=== PATIENT | male | born 1945 | race Asian ===

== ENCOUNTER 2023-09-22 08:37 | Outpatient (RCR) | payer OTHER, SELFPAY | END 2023-09-22 23:59 | disposition home or self-care (01) | LOC: RPT 08:37 | PROVIDERS: ATTENDING PHYSICIAN Orthopaedic Surgery; FAMILY PHYSICIAN Internal Medicine | DX: M76.32 Iliotibial band syndrome, left leg (principal); M16.12 Unilateral primary osteoarthritis, left hip; Z73.6 Limitation of activities due to disability; M25.552 Pain in left hip | CPT/HCPCS: 97110; 97161 ==

== ENCOUNTER 2023-10-13 09:07 | Outpatient (RCR) | payer OTHER, SELFPAY | END 2023-10-13 23:59 | disposition home or self-care (01) | LOC: RPT 09:07 | PROVIDERS: ATTENDING PHYSICIAN Orthopaedic Surgery; FAMILY PHYSICIAN Internal Medicine | DX: M76.32 Iliotibial band syndrome, left leg (principal); M16.12 Unilateral primary osteoarthritis, left hip; Z73.6 Limitation of activities due to disability; R26.2 Difficulty in walking, not elsewhere classified; M62.81 Muscle weakness (generalized) | CPT/HCPCS: 97110; 97140 ==

== ENCOUNTER 2024-03-24 07:59 | Emergency (ER) | payer OTHER, SELFPAY ==
[2024-03-24 07:59] VITALS: BMI 21.6
[2024-03-24 08:01] VITALS: BP 123/71
--- NOTE | 2024-03-24 09:39 | ED.GENMED ---
History of Present Illness
General
Chief Complaint: Fever
Source: patient
Exam Limitations: none
Time Seen by Provider: 03/24/24 09:39
Nursing documentation reviewed up to this point in time: agreed with
History of Present Illness
History of Present Illness:
79-year-old male presents to the ER for evaluation. Patient reports he got back from [place] last night but reports for the past 2 weeks he has had intermittent episodes of diarrhea. He complains of feeling very dizzy and feels feverish and
complains of weakness. He denies any abdominal pain to me. He denies any cough denies any runny nose.
He denies any chest pain shortness of breath.
Past History
Past History
ED Past Medical History: Hypercholesterolemia
ED Past Surgical History: None
Social History
Tobacco: Non-smoker
Living: with family
Review of Systems
Review of Systems
Allergies reviewed?: Yes
All Other Systems: ROS reviewed and negative except as documented in HPI and ROS
Constitutional: Reports fever, fatigue and chills
Respiratory: Reports no symptoms; Denies cough or trouble breathing
Cardiac: Reports no symptoms
ABD/GI: Reports diarrhea (Intermittent diarrhea for 2 weeks)
: Reports no symptoms
Skin: Reports no symptoms
Neurological: Reports no symptoms
Psychiatric: Reports no symptoms
Phy Exam
General Physical Exam
General Presentation: no apparent distress
General age: appears stated age
General Skin: warm and dry
General Habitus: normal
General Mental: alert
General Hydration: appears well hydrated
Cardiovascular Exam
Cardiovascular Exam: regular rate/rhythm
Pulmonary Exam
Pulmonary Exam: lungs clear and no respiratory distress
Gastrointestinal Exam
Gastrointestinal Exam: normal bowel sounds, non tender and soft
Neurological Exam
Neurological Exam: alert and oriented x3
Musculoskeletal Exam
Musculoskeletal Exam: full ROM
Skin Exam
Skin Exam: normal color and warm/dry
Psychiatric Exam
Psychiatric Exam: normal mood/affect
Sepsis
Sepsis Screening
Sepsis Assessment: Sepsis Ruled Out
Sepsis Screen
Sepsis Screen: Sepsis Ruled Out
Date: 03/24/24
Time: 14:31
Course
Orders/Labs/Results
Orders:
Orders
03/24/24 08:03
Electrocardiogram (*1) Urgent
Reason for Study: Vertigo / Dizzy
EKG- Treatment ONCE
03/24/24 09:52
Electrocardiogram (*1) Stat
Reason for Study: Abdominal Pain
Cardiac Monitoring- Treatment ONCE
EKG- Treatment ONCE
IV Insert/Care/Rem.- Treatment PRN
0.9% Sodium Chloride 1000 ml [Nss] 1,000 ml IV BOLUS
03/24/24 09:59
COVID-19 Antigen Urgent
Source: Nasal Swab
Complete Blood Count/With Diff Urgent
Comprehensive Metabolic Panel Urgent
Urinalysis Reflex To Culture Urgent
Date Specimen was Collected: 03/24/24
Time Specimen was Collected: 09:58
Urine Microscopic Reflex Cult Urgent
Influenza A+B Rapid Molecular Urgent
CHARBEL Source: Nasal Swab
Specimen Description:
Urine Culture Urgent
CHARBEL Source: U
Specimen Description:
Date Specimen was Collected: 03/24/24
Time Specimen was Collected: 09:58
03/24/24 10:02
Acetaminophen [Tylenol] 650 mg PO NOW STA
03/24/24 12:35
Chest [CR Chest - 2 Views ] Urgent
Comment:
Reason For Exam: fever
03/24/24 13:44
CT Abd/pel W Iv And Oral Contr Urgent
Comment:
Reason For Exam: abd pain /fever
Iohexol [Omnipaque] See Protocol PO NOW STA
Abnormal Lab Results
03/24/24
09:59
RBC 4.69 L 10^6/uL
(4.70-6.10)
MPV 12.4 H fL
(7.4-10.4)
Abs Immat Gran (auto) 0.1 H 10^3/uL
(0-0.05)
Absolute Lymphs (auto) 0.4 L 10^3/uL
(1.2-3.4)
Immature Gran % 0.7 H %
(0-0.5)
Neutrophils % 85.1 H %
(42.2-75.2)
Lymphocytes % 5.2 L %
(20.5-51.1)
Carbon Dioxide 21 L mmol/L
(22-30)
Glucose 104 H mg/dl
(70-99)
Urine Ketones 2+ A
(Negative)
Ur Occult Blood Reflex 2+ A
(Negative)
Leukocyte Esterase Rfl 2+ A
(Negative)
Urine RBC 3-6 A /HPF
(0-2)
Urine Bacteria (Reflex) Few A
(Negative)
03/24/24 09:59
03/24/24 09:59
Vital Signs
Initial and Last Documented VS:
Initial Vital Signs
Temp Pulse Resp BP Pulse Ox
102.4 F H 104 16 123/71 96
03/24/24 08:01 03/24/24 08:01 03/24/24 08:01 03/24/24 08:01 03/24/24 08:01
Last Documented Vital Signs
Temp Pulse Resp BP Pulse Ox
99.2 F 87 23 94/55 95
03/24/24 10:52 03/24/24 12:30 03/24/24 12:30 03/24/24 12:00 03/24/24 12:30
MDM/Problems Addressed
MDM/Problems Addressed:
Patient is a 79-year-old male who presented to the ER for evaluation. Triage note initially stated patient had abdominal pain complaints and fever. However on my exam patient complains of fevers and lightheadedness denies any abdominal pain but
does report he had diarrhea . patient had a temp of 102.4 but negative COVID negative flu. Patient's urinalysis is negative. He is nontoxic on exam with a normal white count of 7.3, normal chemistries and negative chest x-ray. He had no episodes
of diarrhea here was not able to give a stool specimen. No meningismus.
Patient was evaluated here feeling much better requesting to go home. he denies any pain now and on exam he is nontender and non toxic. i did offer pt ct scan with history of intermittent recent abdominal pain however he does not want a CAT scan
and wants to go home stating he is feeling better.
He was able to ambulate here in the ER and is very nontoxic-appearing
Discussed with patient close outpatient follow his family doctor and to return if any worsening of symptoms. Patient was given a stool prescription for outpatient
*Critical Care Note
Total Time (30-74mins, 75-104mins- exclusive of procedures): Not Applicable
ED Attending Note
-
Portions of this chart may have been created with voice recognition software.� Occasional wrong word or��sound alike� substitutions may have occurred due to the inherent limitations of voice recognition software.
Discharge Plan
Departure
Patient Disposition: Home (Routine Discharge)
Date of Disposition: 03/24/24
Time of Disposition: 14:17
Patient with high blood pressure during this ER visit?: No
Condition: Fair
Covid-19: Not Applicable
Discharge Problem:
Fever
Instructions: Fever, Adult (DC)
Prescriptions:
No Action
atorvastatin 80 MG tablet
80 mg PO QPM Qty: 30 0RF
aspirin 81 MG tablet,delayed release (DR/EC)
81 mg PO DAILY 0RF
Referrals:
Saleem Bishop MD [Family Provider] -
Activity Restrictions/Additional Instructions:
Stable hydrated. Follow-up with a family doctor in the next several days .
return if any worsening of symptoms including worsening fever lightheaded dizziness abdominal pain nausea vomiting, diarrhea or any further concerns..
You were given an outpatient prescription for stool specimen. Please provide stool specimen to nearest lab and be sure to follow-up with your family doctor for results and further evaluation
Interventions
Interventions:
*Risk Screen - Suicide Last Done: 03/24/24 08:03
*Neglect/Abuse Screening Last Done: 03/24/24 08:03
ED- Fall Risk Assessment Last Done: 03/24/24 11:40
ED- Neurological Assessment Last Done: 03/24/24 11:40
ED-Skin Assessment Last Done: 03/24/24 11:40
Discharge Date and Time
Print Language: AFGHAN
[2024-03-24] MEDS: TYLENOL 650 MG PO (10:04)
[2024-03-24] MEDS: NSS 1000 IV (10:05)
[2024-03-24 10:15] LABS: % Basophils 0.3 % (0-2); % Eosinophils 0.3 % (0-6); % Immature Granulocytes 0.7 % (0-0.5); % Lymphocytes 5.2 % (20.5-51.1); % Monocytes 8.4 % (1.7-9.3); % Neutrophils 85.1 % (42.2-75.2); Absolute Immature Granulocytes 0.1 10^3/uL (0-0.05); Absolute Lymphocytes 0.4 10^3/uL (1.2-3.4); Absolute Monocytes 0.6 10^3/uL (0.1-0.6); Absolute Neutrophils 6.3 10^3/uL (1.4-6.5); Hematocrit 40.4 % (39.0-52.0); Hemoglobin 13.7 g/dL (13.0-18.0); Mean Corp Hgb Conc. 33.9 g/dL (33.0-37.0); Mean Corpuscular Hgb 29.2 pg (27.0-31.0); Mean Corpuscular Volume 86.1 fL (80.0-94.0); Mean Platelet Volume 12.4 fL (7.4-10.4); Nucleated Red Blood Cells % 0 % (-); Platelet Count 168 10^3/uL (130-400); Red Blood Cell Count 4.69 10^6/uL (4.70-6.10); Red Cell Dist. Width 13.7 % (11.5-14.5); White Blood Cell Count 7.3 10^3/uL (4.8-10.8)
[2024-03-24 10:19] LABS: Urine Albumin Negative (Neg - Trace); Urine Bilirubin Negative (Negative); Urine Character Clear (Clear); Urine Color Yellow; Urine Glucose Negative (Negative); Urine Ketone 2+ (Negative); Urine Leukocyte 2+ (Negative); Urine Nitrite Negative (Negative); Urine Occult Blood 2+ (Negative); Urine Specific Gravity 1.015 (<1.030); Urine Urobilinogen Negative (Neg - 1+)
[2024-03-24 10:27] LABS: ALT (SGPT) 25 U/L (0-50); AST (SGOT) 35 U/L (17-59); Alkaline Phosphatase 84 U/L (38-126); Blood Urea Nitrogen 19 mg/dl (9-20); Calcium 8.9 mg/dl (8.4-10.2); Carbon Dioxide 21 mmol/L (22-30); Chloride 104 mmol/L (98-107); Estimated Creatinine Clearance 58 ml/min; Glucose 104 mg/dl (70-99); Potassium 3.9 mmol/L (3.5-5.1); Sodium 139 mmol/L (135-145); Total Bilirubin 0.9 mg/dl (0.2-1.3); Total Protein 6.7 g/dl (6.3-8.2); eGFR > 60.00
[2024-03-24 10:33] LABS: COVID-19 Antigen Negative (Negative)
[2024-03-24 10:49] VITALS: BP 110/64
[2024-03-24 11:00] VITALS: BP 104/62
[2024-03-24 11:16] LABS: Urine Mucus Many
[2024-03-24 11:18] LABS: Urine Amorphous Seen; Urine Squamous Cell 0-2 /LPF (Few)
[2024-03-24 11:22] LABS: Urine Bacteria Few (Negative)
[2024-03-24 12:00] VITALS: BP 94/55
[2024-03-24 13:37] VITALS: BP 93/60
[2024-03-24] MEDS: OMNIPAQUE 50 ML PO (13:53)
== END 2024-03-24 14:46 | disposition home or self-care (01) ==
LOC: EMR 07:59
PROVIDERS: Nurse Practitioner; EMERGENCY PHYSICIAN Emergency Medicine; FAMILY PHYSICIAN Internal Medicine
DX: R50.9 Fever, unspecified (principal); R19.7 Diarrhea, unspecified; E78.00 Pure hypercholesterolemia, unspecified
CPT/HCPCS: 99283; 96360; 71046; 80053; 81003; 81015; 85025; 87086; 87502; 87811; 93005

== ENCOUNTER 2024-05-25 09:32 | Emergency (ER) | payer OTHER, SELFPAY ==
[2024-05-25 09:43] VITALS: BP 149/100
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
== END 2024-05-25 13:22 | disposition home or self-care (01) ==
LOC: EMR 09:32
PROVIDERS: EMERGENCY PHYSICIAN Emergency Medicine; FAMILY PHYSICIAN Internal Medicine
DX: M79.652 Pain in left thigh (principal); M79.651 Pain in right thigh; M79.602 Pain in left arm; M79.601 Pain in right arm; R10.9 Unspecified abdominal pain; V09.20XA Pedestrian injured in traffic accident involving unspecified motor vehicles, initial encounter; E78.00 Pure hypercholesterolemia, unspecified; Z79.82 Long term (current) use of aspirin
CPT/HCPCS: 99284; 71046; 73060; 73130; 73552; 74177; Q9967